=== PATIENT | female | born 1995 | race Two or more races ===

== ENCOUNTER 2016-10-30 13:03 | Inpatient (IN) | payer OTHER ==
[~2016-10-30] VITALS: Ht 170.2 cm; Wt 60.9 kg
[~2016-10-30 13:03] MED LIST: SUCCINYLCHOLINE CHLORIDE 200MG/10ML VIAL IV ONE
[2016-10-30] MEDS ORDERED: SODIUM CHLORIDE 0.9% 1,000 ML IV ONE ×2 (13:22→16:43)
[2016-10-30] MEDS ORDERED: SODIUM CHLORIDE 0.9% 1000ML BAG (SEPSIS BOLUS) IV ONE (13:30)
[2016-10-30] MEDS ORDERED: SODIUM BICARBONATE 8.4% 1 MEQ/ML 50ML SYR IV ONE ×4 (13:30→15:30)
[2016-10-30] MEDS ORDERED: DILTIAZEM HCL 5MG/ML 5ML VIAL IV ONE (13:30)
[2016-10-30] MEDS ORDERED: INSULIN REGULAR (HUMULIN R) UD 100 UNITS/ML SYR SUBCUT ONE (13:30)
[2016-10-30] MEDS ORDERED: CALCIUM GLUCONATE 100MG/ML 10ML VIAL IV ONE (13:30)
[2016-10-30] MEDS ORDERED: INSULIN REGULAR (HUMULIN R) 300UNITS/3ML SUBCUT ONE (13:37)
[2016-10-30 13:51] LABS: BG CARBOXYHEMOGLOBIN 0.4 % (0.5-1.5); BG DEOXYHEMOGLOBIN 0.2 % (0.0-5.0); BG FRACTION INSPIRED OXYGEN 100; BG HCO3 ACT 4.2 mmol/L (22.0-26.0); BG METHEMOGLOBIN 0.5 % (0.0-1.5); BG OXYGEN SATURATION 99.8 % (92.0-98.5); BG OXYHEMOGLOBIN 98.9 % (94.0-97.0); BG PCO2 31.3 mmHg (35.0-45.0); BG PO2 510.9 mmHg (75.0-100.0); BG SAMPLE SITE RIGHT BRACHIAL; BG TIDAL VOLUME(mL) 450 mL; BG TOTAL HEMOGLOBIN 13.9 g/dL (12.0-18.0); BG VENT MODE VENT - A/C; BG VENT RATE 14 set
[2016-10-30] MEDS ORDERED: LORAZEPAM 2MG/ML CPJ IV ONE ×3 (14:00→16:45)
[2016-10-30] MEDS ORDERED: LORAZEPAM 2MG/ML CPJ ONE ×2 (14:05→15:12)
[2016-10-30 14:39] LABS: HEMATOCRIT. 40.3 % (36.0-48.0); MEAN CORPUSCULAR HEMOGLOBIN 31.9 pg (28.0-32.0); MEAN CORPUSCULAR VOLUME 117.1 fL (81.0-99.0); PLATELET 304 x1000/uL (130-400); RED BLOOD CELL COUNT 3.44 mill/uL (4.2-5.4); RED CELL DISTRIBUTION WIDTH 14.4 % (11.6-14.6)
[2016-10-30 14:47] LABS: INR 1.2; PARTIAL THROMBOPLASTIN TIME 27.8 sec (24.0-34.0); PROTHROMBIN TIME 12.5 sec
[2016-10-30 14:52] LABS: HCG SCREEN NEGATIVE
[2016-10-30 14:54] LABS: CHLORIDE 88 mEq/L (98-107); CREATINE KINASE 43 IU/L (26-192); ETHANOL BLOOD < 10 mg/dL; TROPONIN I < 0.02 ng/mL (0.00-0.04)
[2016-10-30 14:59] LABS: CARBON DIOXIDE 4 mEq/L (21-32)
[2016-10-30 15:13] LABS: CLARITY URINE CLOUDY (CLEAR); COLOR URINE YELLOW (YELLOW); KETONES URINE 1+ (NEGATIVE); LEUKOCYTE ESTERASE URINE NEGATIVE (NEGATIVE); NITRITE URINE NEGATIVE (NEGATIVE); OCCULT BLOOD URINE NEGATIVE (NEGATIVE); PROTEIN URINE TRACE (NEGATIVE); SPECIFIC GRAVITY URINE 1.028 (1.005-1.030)
[2016-10-30] MEDS ORDERED: PHENYLEPHRINE 10 MG in DEXT 5% WATER 249 ML IV STA (15:13)
[2016-10-30] MEDS ORDERED: INSULIN REGULAR (DRIP) 100 UNITS in SODIUM CHLORIDE 0.9% 99 ML IV ONE (15:15)
[2016-10-30] MEDS ORDERED: INSULIN REGULAR (HUMULIN R) UD 100 UNITS/ML SYR IV ONE (15:15)
[2016-10-30] MEDS ORDERED: VANCOMYCIN 1 G PREMIX 200 ML IV SCH (15:30)
[2016-10-30] MEDS ORDERED: PIPERACILLIN/TAZ 3.375G PREMIX 50 ML IV ONE (15:30)
[2016-10-30] MEDS ORDERED: ALBUTEROL (0.083%) 2.5MG/3ML NEB HHN ONE (15:30)
[2016-10-30] MEDS ORDERED: SODIUM POLYSTYRENE SULFONATE 15 G/60 ML BOT NG ONE (15:30)
[2016-10-30] MEDS ORDERED: PHENYLEPHRINE 10 MG in DEXT 5% WATER 249 ML IV NR (15:30)
[2016-10-30 15:31] LABS: PLATELET ESTIMATE NORMAL
[2016-10-30 15:34] LABS: *AMPHETAMINES SCREEN URINE NEGATIVE (NEGATIVE); *BARBITURATES SCREEN URINE NEGATIVE (NEGATIVE); *BENZODIAZEPINES SCREEN URINE NEGATIVE (NEGATIVE); *COCAINE SCREEN URINE NEGATIVE (NEGATIVE); CANNABINOID URINE SCREEN NEGATIVE (NEGATIVE); METHADONE URINE SCREEN NEGATIVE (NEGATIVE); OPIATES URINE SCREEN NEGATIVE (NEGATIVE); PHENCYCLIDINE URINE SCREEN NEGATIVE (NEGATIVE)
[2016-10-30] MEDS ORDERED: INSULIN REGULAR (HUMULIN R) 300UNITS/3ML IV NR (16:03)
[2016-10-30] MEDS ORDERED: NA PHOS,M-B/NA PHOS,DI-BA ENEMA 118ML PR PRN (16:15)
[2016-10-30] MEDS ORDERED: ONDANSETRON HCL 4MG/2ML VIAL IV PRN (16:15)
[2016-10-30] MEDS ORDERED: HYDROCODONE/ACETAMINOPHEN 5/325MG TABLET PO PRN (16:15)
[2016-10-30] MEDS ORDERED: MAGNESIUM/ALUMINUM HYDROXIDE/SIMETHICONE 30ML UDC PO PRN (16:15)
[2016-10-30] MEDS ORDERED: CLONIDINE 0.1MG TABLET PO PRN (16:15)
[2016-10-30] MEDS ORDERED: ACETAMINOPHEN 325MG TABLET PO PRN (16:15)
[2016-10-30] MEDS ORDERED: MIDAZOLAM HCL 50 MG in DEXTROSE 5% WATER 40 ML IV ONE (16:15)
[2016-10-30] MEDS ORDERED: DOCUSATE SODIUM 100MG CAPSULE PO PRN (16:15)
[2016-10-30] MEDS ORDERED: INSULIN REGULAR (DRIP) 100 UNITS in SODIUM CHLORIDE 0.9% 100 ML IV SCH (16:15)
[2016-10-30] MEDS ORDERED: HYDROMORPHONE HCL/PF 2MG/ML CPJ IV PRN (16:15)
[2016-10-30] MEDS ORDERED: DIPHENHYDRAMINE 50MG/ML VIAL IV PRN (16:15)
[2016-10-30] MEDS ORDERED: MIDAZOLAM HCL 50 MG in DEXTROSE 5% WATER 40 ML IV NR (16:30)
[2016-10-30 16:56] LABS: HEPATITIS B SURFACE ANTIGEN NEGATIVE
[2016-10-30 17:00] LABS: PHOSPHORUS 11.4 mg/dL (2.5-4.9)
[2016-10-30 17:24] LABS: HEPATITIS B CORE AB IGM NEGATIVE
[2016-10-30 17:26] LABS: HEPATITIS A AB IGM NEGATIVE (NEGATIVE)
[2016-10-30 18:59] LABS: PHOSPHORUS 8.7 mg/dL (2.5-4.9)
[2016-10-30] MEDS ORDERED: SODIUM CHLORIDE 0.45% 1,000 ML IV SCH (19:13)
[2016-10-30] MEDS ORDERED: DEXTROSE 50% WATER 50ML SYRINGE IV PRN ×2 (19:15)
[2016-10-30] MEDS: PHENYLEPHRINE 20 MG in DEXT 5% WATER 248 ML IV PRN ×2 (19:56→23:13)
[2016-10-30] MEDS: BLOOD SUGAR DIAGNOSTIC STRIP TEST SCH ×5 (19:58→23:14)
[2016-10-30] MEDS: ENOXAPARIN 40MG/0.4ML SYR SUBCUT SCH (19:58)
[2016-10-30 20:01] LABS: BG CARBOXYHEMOGLOBIN 0.3 % (0.5-1.5); BG DEOXYHEMOGLOBIN 0.7 % (0.0-5.0); BG FRACTION INSPIRED OXYGEN 50; BG HCO3 ACT 10.1 mmol/L (22.0-26.0); BG METHEMOGLOBIN 0.5 % (0.0-1.5); BG OXYGEN SATURATION 99.3 % (92.0-98.5); BG OXYHEMOGLOBIN 98.5 % (94.0-97.0); BG PCO2 25.7 mmHg (35.0-45.0); BG PH 7.212 (7.350-7.450); BG PO2 259.1 mmHg (75.0-100.0); BG SAMPLE SITE LEFT RADIAL; BG TIDAL VOLUME(mL) 450 mL; BG TOTAL HEMOGLOBIN 13.6 g/dL (12.0-18.0); BG VENT MODE VENT - A/C; BG VENT RATE 14 set
[2016-10-30 20:30] LABS: PHOSPHORUS 2.1 mg/dL (2.5-4.9)
[2016-10-30] MEDS ORDERED: SODIUM BICARBONATE 8.4% 1 MEQ/ML 50ML SYR IV NR (20:30)
[2016-10-30] MEDS ORDERED: POTASSIUM CHLORIDE INJ 60 MEQ in DEXT 5% WATER 300 ML IV ONE (21:00)
[2016-10-30] MEDS: INSULIN REGULAR (DRIP) 100 UNITS in SODIUM CHLORIDE 0.9% 100 ML IV SCH (21:13)
[2016-10-30] MEDS ORDERED: SODIUM CHLORIDE 0.9% 1000ML BAG (SEPSIS BOLUS) IV NR (21:16)
[2016-10-30] MEDS: KCL 20MEQ/100ML PREMIX 100 ML IV SCH ×3 (21:43→23:13)
[2016-10-30 22:02] LABS: BG BASE EXCESS -10.7 mmol/L (-2.0-2.0); BG CARBOXYHEMOGLOBIN 0.3 % (0.5-1.5); BG DEOXYHEMOGLOBIN 0.9 % (0.0-5.0); BG FRACTION INSPIRED OXYGEN 50; BG HCO3 ACT 14.2 mmol/L (22.0-26.0); BG METHEMOGLOBIN 0.4 % (0.0-1.5); BG OXYGEN SATURATION 99.1 % (92.0-98.5); BG OXYHEMOGLOBIN 98.4 % (94.0-97.0); BG PCO2 28.7 mmHg (35.0-45.0); BG PH 7.311 (7.350-7.450); BG PO2 239.4 mmHg (75.0-100.0); BG SAMPLE SITE LEFT RADIAL; BG TIDAL VOLUME(mL) 450 mL; BG TOTAL HEMOGLOBIN 12.5 g/dL (12.0-18.0); BG VENT MODE VENT - A/C; BG VENT RATE 14 set
[2016-10-30 22:18] LABS: PHOSPHORUS 1.1 mg/dL (2.5-4.9)
[2016-10-30 22:20] LABS: TROPONIN I 6.7 ng/mL (0.00-0.04)
[2016-10-30] MEDS: PIPERACILLIN/TAZ 3.375G PREMIX 50 ML IV SCH (23:13)
[2016-10-30] MEDS: SODIUM BICARBONATE 100 MEQ in SODIUM CHLORIDE 0.45% 1,000 ML IV SCH (23:14)
[2016-10-30] MEDS: MIDAZOLAM HCL 50 MG in DEXTROSE 5% WATER 40 ML IV PRN (23:34)
[2016-10-31] MEDS: BLOOD SUGAR DIAGNOSTIC STRIP TEST SCH ×22 (01:23→23:21)
[2016-10-31 03:53] LABS: CHLORIDE 115 mEq/L (98-107)
[2016-10-31 04:04] LABS: CARBON DIOXIDE 24 mEq/L (21-32); HDL CHOLESTEROL 32 mg/dL (40-59); LDL CHOLESTEROL 87 mg/dL (5-100)
[2016-10-31] MEDS: INSULIN REGULAR (DRIP) 100 UNITS in SODIUM CHLORIDE 0.9% 100 ML IV SCH ×2 (04:35→19:54)
[2016-10-31] MEDS: PIPERACILLIN/TAZ 3.375G PREMIX 50 ML IV SCH ×3 (05:03→20:20)
[2016-10-31] MEDS ORDERED: POTASSIUM CHLORIDE 20MEQ/PACKET PO ONE (05:45)
[2016-10-31] MEDS: KCL 20MEQ/100ML PREMIX 100 ML IV SCH ×3 (06:02→12:04)
[2016-10-31] MEDS: MIDAZOLAM HCL 50 MG in DEXTROSE 5% WATER 40 ML IV PRN (06:11)
[2016-10-31] MEDS: SODIUM BICARBONATE 100 MEQ in SODIUM CHLORIDE 0.45% 1,000 ML IV SCH (06:11)
[2016-10-31] MEDS ORDERED: KCL 20MEQ/100ML PREMIX 100 ML IV SCH (06:30)
[2016-10-31 07:41] LABS: BASOPHILS % 0.2 % (0.0-2.0); EOSINOPHILS % 0.2 % (0.0-5.0); HEMATOCRIT. 36.9 % (36.0-48.0); HEMOGLOBIN. 12.8 g/dL (12.0-16.0); LYMPHOCYTES % 8.1 % (20.0-50.0); MEAN CORPUSCULAR HEMOGLOBIN 31.6 pg (28.0-32.0); MEAN CORPUSCULAR VOLUME 90.8 fL (81.0-99.0); NEUTROPHILS % 85.5 % (40.0-76.0); PLATELET 184 x1000/uL (130-400); RED BLOOD CELL COUNT 4.06 mill/uL (4.2-5.4); RED CELL DISTRIBUTION WIDTH 12.3 % (11.6-14.6)
[2016-10-31] MEDS ORDERED: DEXT 5%/0.45% NACL 500ML 1,000 ML IV ONE (08:15)
[2016-10-31] MEDS: DEXT 5%/0.45% NACL 500ML 1,000 ML IV NR ×2 (08:30→17:59)
[2016-10-31] MEDS: PANTOPRAZOLE SODIUM 40 MG/VIAL IV SCH (09:36)
[2016-10-31] MEDS ORDERED: DILTIAZEM HCL 5MG/ML 5ML VIAL IV NR (09:45)
[2016-10-31 09:59] LABS: BG BASE EXCESS 8.9 mmol/L (-2.0-2.0); BG CARBOXYHEMOGLOBIN 0.3 % (0.5-1.5); BG DEOXYHEMOGLOBIN 1.1 % (0.0-5.0); BG FRACTION INSPIRED OXYGEN 35; BG HCO3 ACT 32.5 mmol/L (22.0-26.0); BG METHEMOGLOBIN 0.1 % (0.0-1.5); BG OXYGEN SATURATION 98.9 % (92.0-98.5); BG OXYHEMOGLOBIN 98.5 % (94.0-97.0); BG PCO2 40.8 mmHg (35.0-45.0); BG PH 7.519 (7.350-7.450); BG SAMPLE SITE RIGHT RADIAL; BG TIDAL VOLUME(mL) 450 mL; BG TOTAL HEMOGLOBIN 12.5 g/dL (12.0-18.0); BG VENT MODE VENT - A/C; BG VENT RATE 14 set
[2016-10-31 12:32] LABS: CREATINE KINASE MB FRACTION 31.1 ng/mL (0.5-3.6)
[2016-10-31] MEDS ORDERED: DILTIAZEM HCL 30MG TABLET PO SCH (14:00)
[2016-10-31] MEDS ORDERED: CARVEDILOL 12.5MG TABLET NG NR ×2 (15:00→16:30)
[2016-10-31 15:59] LABS: CREATINE KINASE MB FRACTION 16.6 ng/mL (0.5-3.6); PHOSPHORUS 1.8 mg/dL (2.5-4.9)
[2016-10-31 16:05] LABS: TROPONIN I 7.5 ng/mL (0.00-0.04)
[2016-10-31] MEDS ORDERED: POTASSIUM PHOS,M-BASIC-D-BASIC 20 MMOL in DEXT 5% WATER 243.3333 ML IV NR (19:00)
[2016-10-31] MEDS: LORAZEPAM 2MG/ML CPJ IV PRN (20:15)
[2016-10-31] MEDS: CARVEDILOL 25MG TABLET PO SCH (20:20)
[2016-10-31] MEDS: ENOXAPARIN 40MG/0.4ML SYR SUBCUT SCH (20:21)
[2016-10-31] MEDS ORDERED: CARVEDILOL 12.5MG TABLET NG SCH (21:00)
[2016-10-31] MEDS: DEXT 5%/0.45% NACL 1000ML 1,000 ML IV SCH (21:17)
[2016-11-01] MEDS: BLOOD SUGAR DIAGNOSTIC STRIP TEST SCH ×24 (00:25→23:00)
[2016-11-01] MEDS: PIPERACILLIN/TAZ 3.375G PREMIX 50 ML IV SCH ×4 (02:01→21:39)
[2016-11-01] MEDS: LORAZEPAM 2MG/ML CPJ IV PRN ×3 (02:01→22:44)
[2016-11-01 02:42] LABS: PHOSPHORUS 1.5 mg/dL (2.5-4.9)
[2016-11-01] MEDS ORDERED: POTASSIUM PHOS,M-BASIC-D-BASIC 30 MMOL in DEXT 5% WATER 250 ML IV NR ×2 (04:30→05:00)
[2016-11-01] MEDS: DEXT 5%/0.45% NACL 1000ML 1,000 ML IV SCH ×2 (05:24→17:37)
[2016-11-01 07:28] LABS: BASOPHILS % 0.7 % (0.0-2.0); EOSINOPHILS % 0.7 % (0.0-5.0); HEMATOCRIT. 32.8 % (36.0-48.0); HEMOGLOBIN. 11.4 g/dL (12.0-16.0); LYMPHOCYTES % 26.6 % (20.0-50.0); MEAN CORPUSCULAR HEMOGLOBIN 32.2 pg (28.0-32.0); MEAN CORPUSCULAR VOLUME 92.8 fL (81.0-99.0); MEAN PLATELET VOLUME 9.3 fl (7.4-10.4); PLATELET 121 x1000/uL (130-400); RED BLOOD CELL COUNT 3.54 mill/uL (4.2-5.4); RED CELL DISTRIBUTION WIDTH 12.8 % (11.6-14.6)
[2016-11-01] MEDS: PANTOPRAZOLE SODIUM 40 MG/VIAL IV SCH (08:19)
[2016-11-01] MEDS: CARVEDILOL 25MG TABLET PO SCH ×2 (09:00→21:39)
[2016-11-01] MEDS ORDERED: DEXTROSE 50% WATER 50ML SYRINGE IV PRN (09:30)
[2016-11-01 09:39] LABS: AMMONIA 45 uMol/L (<32)
[2016-11-01] MEDS: INSULIN REGULAR (DRIP) 100 UNITS in SODIUM CHLORIDE 0.9% 100 ML IV SCH (11:11)
[2016-11-01 11:34] LABS: BG BASE EXCESS 4.1 mmol/L (-2.0-2.0); BG CARBOXYHEMOGLOBIN 0.3 % (0.5-1.5); BG DEOXYHEMOGLOBIN 1.4 % (0.0-5.0); BG FRACTION INSPIRED OXYGEN 35; BG HCO3 ACT 27.5 mmol/L (22.0-26.0); BG METHEMOGLOBIN 0.1 % (0.0-1.5); BG OXYGEN SATURATION 98.6 % (92.0-98.5); BG OXYHEMOGLOBIN 98.2 % (94.0-97.0); BG PCO2 37.1 mmHg (35.0-45.0); BG PH 7.488 (7.350-7.450); BG SAMPLE SITE RIGHT BRACHIAL; BG TIDAL VOLUME(mL) 450 mL; BG TOTAL HEMOGLOBIN 11.6 g/dL (12.0-18.0); BG VENT MODE VENT - A/C; BG VENT RATE 14 set
[2016-11-01] MEDS: LACTULOSE 20G/30ML UDC PO SCH ×2 (15:15→21:40)
[2016-11-01] MEDS: THIAMINE HCL 100 MG in SODIUM CHLORIDE 0.9% 49 ML IV SCH (16:43)
[2016-11-01] MEDS ORDERED: POTASSIUM PHOS,M-BASIC-D-BASIC 10 MMOL in DEXT 5% WATER 246.6667 ML IV NR (18:00)
[2016-11-01] MEDS: ENOXAPARIN 40MG/0.4ML SYR SUBCUT SCH (20:00)
[2016-11-01] MEDS ORDERED: INSULIN DETEMIR UD 100 UNITS/ML SYR SUBCUT SCH (22:00)
[2016-11-02] MEDS: BLOOD SUGAR DIAGNOSTIC STRIP TEST SCH ×5 (00:20→18:00)
[2016-11-02] MEDS: INSULIN LISPRO 100 UNITS/ML SUBCUT SCH ×4 (00:38→18:00)
[2016-11-02] MEDS: DEXT 5%/0.45% NACL 1000ML 1,000 ML IV SCH (02:42)
[2016-11-02] MEDS: LORAZEPAM 2MG/ML CPJ IV PRN (03:00)
[2016-11-02] MEDS: PIPERACILLIN/TAZ 3.375G PREMIX 50 ML IV SCH ×3 (03:05→15:05)
[2016-11-02] MEDS ORDERED: INSULIN LISPRO 100 UNITS/ML SUBCUT SCH ×2 (04:00→07:00)
[2016-11-02] MEDS: LACTULOSE 20G/30ML UDC PO SCH ×2 (05:30→14:00)
[2016-11-02 05:58] LABS: BASOPHILS % 0.5 % (0.0-2.0); EOSINOPHILS % 0.5 % (0.0-5.0); HEMATOCRIT. 33.4 % (36.0-48.0); HEMOGLOBIN. 11.6 g/dL (12.0-16.0); LYMPHOCYTES % 23.7 % (20.0-50.0); MEAN CORPUSCULAR HEMOGLOBIN 31.9 pg (28.0-32.0); MEAN CORPUSCULAR VOLUME 91.4 fL (81.0-99.0); MEAN PLATELET VOLUME 10.2 fl (7.4-10.4); MONOCYTES % 4.7 % (2.0-8.0); NEUTROPHILS % 70.6 % (40.0-76.0); PLATELET 142 x1000/uL (130-400); RED BLOOD CELL COUNT 3.65 mill/uL (4.2-5.4); RED CELL DISTRIBUTION WIDTH 12.7 % (11.6-14.6)
[2016-11-02] MEDS: DEXTROSE 50% WATER 50ML SYRINGE IV PRN ×4 (06:45→16:39)
[2016-11-02 06:48] LABS: PHOSPHORUS 3.7 mg/dL (2.5-4.9)
[2016-11-02] MEDS ORDERED: DEXT 5%/0.45% NACL KCL 40MEQ/L 1,000 ML IV ONE (07:30)
[2016-11-02] MEDS ORDERED: DEXT 5%/0.45% NACL KCL 40MEQ/L 1,000 ML IV NR (08:30)
[2016-11-02] MEDS: CARVEDILOL 25MG TABLET PO SCH ×2 (09:00→21:00)
[2016-11-02] MEDS: THIAMINE HCL 100 MG in SODIUM CHLORIDE 0.9% 49 ML IV SCH (09:24)
[2016-11-02] MEDS ORDERED: MAGNESIUM SULFATE 3 GM in DEXT 5% WATER 96 ML IV ONE (09:30)
[2016-11-02] MEDS ORDERED: POTASSIUM CHLORIDE IV NR (10:00)
[2016-11-02] MEDS ORDERED: SODIUM CHLORIDE 0.45% IV NR (10:00)
[2016-11-02] MEDS ORDERED: MAGNESIUM 4 G PREMIX 100 ML IV NR (10:00)
[2016-11-02 10:24] LABS: BG CARBOXYHEMOGLOBIN 0.4 % (0.5-1.5); BG DEOXYHEMOGLOBIN 1.6 % (0.0-5.0); BG FRACTION INSPIRED OXYGEN 35; BG HCO3 ACT 24.9 mmol/L (22.0-26.0); BG METHEMOGLOBIN 0.2 % (0.0-1.5); BG OXYGEN SATURATION 98.4 % (92.0-98.5); BG OXYHEMOGLOBIN 97.8 % (94.0-97.0); BG PCO2 33.6 mmHg (35.0-45.0); BG PH 7.488 (7.350-7.450); BG PO2 117.7 mmHg (75.0-100.0); BG PRESSURE SUPPORT 6; BG SAMPLE SITE LEFT BRACHIAL; BG TOTAL HEMOGLOBIN 12.6 g/dL (12.0-18.0); BG VENT MODE VENT - CPAP
[2016-11-02] MEDS ORDERED: DEXT 5%/0.45% NACL KCL 10MEQ/L 1,000 ML IV SCH (12:30)
[2016-11-02] MEDS: PANTOPRAZOLE 40MG DR TABLET PO SCH (15:04)
[2016-11-02] MEDS: DEXT 5%/0.45% NACL KCL 20MEQ/L 1,000 ML IV SCH (16:00)
[2016-11-02] MEDS ORDERED: DEXTROSE 10% WATER 500 ML IV ONE (16:45)
[2016-11-02] MEDS: PIPERACILLIN/TAZ 2.25G PREMIX 50 ML IV SCH (21:10)
[2016-11-02] MEDS: ENOXAPARIN 30MG/0.3ML SYR SUBCUT SCH (21:10)
[2016-11-02] MEDS: GUAIFENESIN 200MG/10ML SUGAR FREE UDC PO PRN (21:18)
[2016-11-02] MEDS ORDERED: INSULIN DETEMIR UD 100 UNITS/ML SYR SUBCUT SCH (22:00)
[2016-11-03 05:22] LABS: BASOPHILS % 0.7 % (0.0-2.0); EOSINOPHILS % 1.3 % (0.0-5.0); HEMATOCRIT. 34.9 % (36.0-48.0); HEMOGLOBIN. 11.8 g/dL (12.0-16.0); LYMPHOCYTES % 21.5 % (20.0-50.0); MEAN CORPUSCULAR HEMOGLOBIN 31.3 pg (28.0-32.0); MEAN CORPUSCULAR VOLUME 92.5 fL (81.0-99.0); MEAN PLATELET VOLUME 10.6 fl (7.4-10.4); NEUTROPHILS % 70.5 % (40.0-76.0); PLATELET 119 x1000/uL (130-400); RED BLOOD CELL COUNT 3.77 mill/uL (4.2-5.4); RED CELL DISTRIBUTION WIDTH 12.6 % (11.6-14.6)
[2016-11-03] MEDS: DEXTROSE 50% WATER 50ML SYRINGE IV PRN (05:42)
[2016-11-03] MEDS: PANTOPRAZOLE 40MG DR TABLET PO SCH (05:50)
[2016-11-03] MEDS: PIPERACILLIN/TAZ 2.25G PREMIX 50 ML IV SCH (05:51)
[2016-11-03] MEDS: GUAIFENESIN 200MG/10ML SUGAR FREE UDC PO PRN (05:52)
[2016-11-03] MEDS: INSULIN LISPRO 100 UNITS/ML SUBCUT SCH ×4 (06:00→18:43)
[2016-11-03] MEDS: BLOOD SUGAR DIAGNOSTIC STRIP TEST SCH ×4 (06:43→18:39)
[2016-11-03] MEDS: DEXT 5%/0.45% NACL KCL 20MEQ/L 1,000 ML IV SCH (06:45)
[2016-11-03] MEDS ORDERED: KCL 20MEQ/100ML PREMIX 100 ML IV NR (07:00)
[2016-11-03] MEDS: CARVEDILOL 25MG TABLET PO SCH ×2 (09:00→21:14)
[2016-11-03] MEDS: THIAMINE HCL 100 MG in SODIUM CHLORIDE 0.9% 49 ML IV SCH (09:07)
[2016-11-03 11:17] LABS: AMMONIA 16 uMol/L (<32)
[2016-11-03] MEDS: FAMOTIDINE 20MG TABLET PO SCH (21:13)
[2016-11-03] MEDS: ENOXAPARIN 30MG/0.3ML SYR SUBCUT SCH (21:14)
[2016-11-03] MEDS: INSULIN DETEMIR UD 100 UNITS/ML SYR SUBCUT SCH (21:44)
[2016-11-04] MEDS: INSULIN LISPRO 100 UNITS/ML SUBCUT SCH ×5 (00:23→23:57)
[2016-11-04] MEDS: GUAIFENESIN 200MG/10ML SUGAR FREE UDC PO PRN (05:49)
[2016-11-04] MEDS: BLOOD SUGAR DIAGNOSTIC STRIP TEST SCH ×5 (05:51→23:57)
[2016-11-04 06:36] LABS: BASOPHILS % 0.7 % (0.0-2.0); EOSINOPHILS % 2.4 % (0.0-5.0); HEMATOCRIT. 32.7 % (36.0-48.0); HEMOGLOBIN. 11.1 g/dL (12.0-16.0); LYMPHOCYTES % 24.9 % (20.0-50.0); MEAN CORPUSCULAR HEMOGLOBIN 31.6 pg (28.0-32.0); MEAN CORPUSCULAR VOLUME 92.6 fL (81.0-99.0); MEAN PLATELET VOLUME 10.9 fl (7.4-10.4); MONOCYTES % 9.6 % (2.0-8.0); NEUTROPHILS % 62.4 % (40.0-76.0); PLATELET 99 x1000/uL (130-400); RED BLOOD CELL COUNT 3.53 mill/uL (4.2-5.4); RED CELL DISTRIBUTION WIDTH 12.5 % (11.6-14.6)
[2016-11-04 06:48] LABS: PHOSPHORUS 3.5 mg/dL (2.5-4.9)
[2016-11-04] MEDS: CARVEDILOL 25MG TABLET PO SCH ×2 (08:30→21:03)
[2016-11-04] MEDS: ENOXAPARIN 30MG/0.3ML SYR SUBCUT SCH (21:02)
[2016-11-04] MEDS: FAMOTIDINE 20MG TABLET PO SCH (21:03)
[2016-11-04] MEDS: MICONAZOLE NITRATE 2% OINT 71GM TOP SCH (21:03)
[2016-11-04] MEDS: INSULIN DETEMIR UD 100 UNITS/ML SYR SUBCUT SCH (21:55)
[2016-11-05] MEDS: GUAIFENESIN 200MG/10ML SUGAR FREE UDC PO PRN (03:21)
[2016-11-05] MEDS: BLOOD SUGAR DIAGNOSTIC STRIP TEST SCH ×2 (06:00→12:48)
[2016-11-05] MEDS: INSULIN LISPRO 100 UNITS/ML SUBCUT SCH ×2 (06:00→12:54)
[2016-11-05 06:31] LABS: BASOPHILS % 0.7 % (0.0-2.0); EOSINOPHILS % 3.4 % (0.0-5.0); HEMATOCRIT. 33.2 % (36.0-48.0); HEMOGLOBIN. 11.3 g/dL (12.0-16.0); LYMPHOCYTES % 29.6 % (20.0-50.0); MEAN CORPUSCULAR HEMOGLOBIN 31.4 pg (28.0-32.0); MEAN CORPUSCULAR VOLUME 92.1 fL (81.0-99.0); MEAN PLATELET VOLUME 11.3 fl (7.4-10.4); MONOCYTES % 10.6 % (2.0-8.0); NEUTROPHILS % 55.7 % (40.0-76.0); PLATELET 161 x1000/uL (130-400); RED BLOOD CELL COUNT 3.61 mill/uL (4.2-5.4); RED CELL DISTRIBUTION WIDTH 12.4 % (11.6-14.6)
[2016-11-05] MEDS: MICONAZOLE NITRATE 2% OINT 71GM TOP SCH (08:19)
[2016-11-05] MEDS: CARVEDILOL 25MG TABLET PO SCH (08:23)
[2016-11-05 14:00] VITALS: BP 133/85
== END 2016-11-05 14:30 | disposition home or self-care (01) | DRG 208 ==
LOC: ER 13:04 → ENRESERV 14:41 → MICUNO 15:43 → EDBEDREQ 15:54 → 3WST 11-03 17:00 → UNDODISIN 11-04 12:20
PROVIDERS: ADMIT Internal Medicine; ATTEND Internal Medicine
PROC: 5A1945Z Respiratory Ventilation, 24-96 Consecutive Hours (ICD-10-PCS; principal; 2016-10-30)
PROC: 0BH17EZ Insertion of Endotracheal Airway into Trachea, Via Natural or Artificial Opening (ICD-10-PCS; 2016-10-30)
PROC: 06HM33Z Insertion of Infusion Device into Right Femoral Vein, Percutaneous Approach (ICD-10-PCS; 2016-10-30)
PROC: B54BZZA Ultrasonography of Right Lower Extremity Veins, Guidance (ICD-10-PCS; 2016-10-30)
DX: J96.00 Acute respiratory failure, unspecified whether with hypoxia or hypercapnia (principal); N17.0 Acute kidney failure with tubular necrosis; E43 Unspecified severe protein-calorie malnutrition; E10.10 Type 1 diabetes mellitus with ketoacidosis without coma; R65.21 Severe sepsis with septic shock; G93.41 Metabolic encephalopathy; I21.4 Non-ST elevation (NSTEMI) myocardial infarction; E87.0 Hyperosmolality and hypernatremia; I42.9 Cardiomyopathy, unspecified; G93.1 Anoxic brain damage, not elsewhere classified; E87.6 Hypokalemia; D32.9 Benign neoplasm of meninges, unspecified; D64.9 Anemia, unspecified; E83.39 Other disorders of phosphorus metabolism; E83.42 Hypomagnesemia; E86.0 Dehydration; E87.5 Hyperkalemia; I10 Essential (primary) hypertension; Y90.0 Blood alcohol level of less than 20 mg/100 ml; Z79.4 Long term (current) use of insulin; Z82.49 Family history of ischemic heart disease and other diseases of the circulatory system; Z91.19 Patient's noncompliance with other medical treatment and regimen; Z68.21 Body mass index [BMI] 21.0-21.9, adult
CPT/HCPCS: 31500; 36415; 36556; 36600; 51702; 70450; 71010; 76770; 80048; 80053; 80061; 80305; 81001; 82140; 82270; 82375; 82550; 82553; 82805; 82962; 83605; 83735; 84100; 84132; 84484; 84703; 85025; 85610; 85730; 86705; 86709; 86803; 86850; 86900; 87040; 87086; 87340; 93005; 93306; 94002; 94003; 96361; 96365; 96366; 96367; 96372; 96375; 97116; 97163; 97165; 99291; A6261; C9113; G0482; J0330; J0610; J1650; J1815; J2060; J2250; J2370; J2543; J3370; J3411; J3475; J3480; J3490; J7030; J7050; J7060; J7611